=== PATIENT | male | born 1970 | race Caucasian/White ===

== ENCOUNTER → 2018-05-09 19:44 | Emergency (ER) | payer MEDICAID, OTHER ==
--- NOTE | 2018-05-09 22:03 | ED ---
Lower Extremity - HPI Summary HPI Summary: 47-year-old male presents with left ankle pain today. He states he rolled his ankle on some ice. He states he inverted and everted his ankle. Has pain equal on the lateral and medial aspect of his ankle. Swelling noted. No knee pain. No other injury. He was able to ambulate with pain. Denies any history of fractures to the area. Has not taking anything for pain yet. - History of Current Complaint Chief Complaint: EDExtremityLower Stated Complaint: LT ANKLE PAIN Time Seen by Provider: 05/09/18 21:47 Pain Intensity: 9 - Allergies/Home Medications Allergies/Adverse Reactions: Allergies Allergy/AdvReac Type Severity Reaction Status Date / Time amoxicillin Allergy Rash Verified 05/09/18 20:15 Penicillins Allergy Rash Verified 05/09/18 20:15 PMH/Surg Hx/FS Hx/Imm Hx Endocrine/Hematology History: Denies: Hx Anticoagulant Therapy Respiratory History: Denies: Hx Asthma Infectious Disease History: No Infectious Disease History: Denies: Traveled Outside the [place] in Last 30 Days - Family History Known Family History: Positive: Non-Contributory - Social History Substance Use Type: Reports: None Smoking Status (MU): Unknown if Ever Smoked Review of Systems Negative: Fever Negative: Chest Pain Negative: Shortness Of Breath Positive: Myalgia - left ankle pain All Other Systems Reviewed And Are Negative: Yes Physical Exam Triage Information Reviewed: Yes Vital Signs On Initial Exam: Initial Vitals Temp Pulse Resp BP Pulse Ox 98.3 F 101 18 170/90 97 05/09/18 20:11 05/09/18 20:11 05/09/18 20:11 05/09/18 20:11 05/09/18 20:11 Vital Signs Reviewed: Yes Appearance: Positive: Well-Appearing Skin: Positive: Warm, Dry Head/Face: Positive: Normal Head/Face Inspection Eyes: Positive: Normal, Conjunctiva Clear ENT: Positive: Pharynx normal Respiratory/Lung Sounds: Positive: Clear to Auscultation, Breath Sounds Present Cardiovascular: Positive: Normal, RRR Musculoskeletal: Positive: Limited @ - left ankle, Edema Left - lateral and medial malleolus, Other - tenderness over lateral and medial malleolus, good pulses, sensation grossly intact Neurological: Positive: Normal Psychiatric: Positive: Normal Diagnostics - Vital Signs Vital Signs Temp Pulse Resp BP Pulse Ox 05/09/18 20:11 98.3 F 101 18 170/90 97 - Laboratory Lab Statement: Any lab studies that have been ordered have been reviewed, and results considered in the medical decision making process. - Radiology ankle Radiology Interpretation Completed By: ED Physician Summary of Radiographic Findings: no fx Lower Extremity Course/Dx - Course Course Of Treatment: 47-year-old male presents with left ankle pain today. He states he rolled his ankle on some ice. He states he inverted and everted his ankle. Has pain equal on the lateral and medial aspect of his ankle. Swelling noted. No knee pain. No other injury. He was able to ambulate with pain. Denies any history of fractures to the area. Has not taking anything for pain yet. On exam tenderness of medial and lateral malleolus of left ankle. Neurovascular intact. X-ray read by me and Dr. Cohen as normal. Gave gel splint and crutches. Told if no improvement to follow-up with orthopedic. Patient understands agrees plan. - Diagnoses Differential Diagnosis/HQI/PQRI: Positive: Contusion, Fracture (Closed), Strain Provider Diagnoses: Left ankle injury Discharge - Sign-Out/Discharge Documenting (check all that apply): Patient Departure - Discharge Plan Condition: Good Disposition: HOME Patient Education Materials: Ankle Sprain (ED) Referrals: Jamison Hill MD [Primary Care Provider] - aSncho Parra MD [Medical Doctor] - Additional Instructions: Stay off ankle as much as possible Ice, elevate, use splint Ibuprofen or tyenlol every 6 hours for pain Follow up with ortho if no improvement Return to ED if develop or any new or worsening symptoms - Billing Disposition and Condition Condition: GOOD Disposition: Home
[2018-05-09 22:38] VITALS: BP 165/80
== END | disposition home or self-care (01) ==
LOC: ED 19:44
DX: S99.912A Unspecified injury of left ankle, initial encounter (principal); X50.1XXA Overexertion from prolonged static or awkward postures, initial encounter; Y92.9 Unspecified place or not applicable; Z88.0 Allergy status to penicillin
CPT/HCPCS: 99281